=== PATIENT | female | born 1970 | race Caucasian/White ===

== ENCOUNTER 2019-01-08 08:30 | Day surgery (SDC) | payer OTHER ==
[2019-01-08] VITALS (7 sets, daily range): BP systolic 83–119; BP diastolic 50–57; PULSE 58–64; RESP 12–25; Ht 134.6 cm; Wt 54.4 kg
[~2019-01-08] VITALS: Ht 134.6 cm; Wt 54.4 kg
[~2019-01-08 08:30] MED LIST: CHOLESTEROL MED; THYROID MEDICATION
--- NOTE | 2019-01-08 10:25 | PREAC ---
Date/Time of Note Date/Time of Note DATE: 01/08/19 TIME: 10:23 Anesthesia Eval and Record Evaluation Time Pre-Procedure Interview DATE: 01/08/19 TIME: 10:23 Age 48 Sex female NPO: 8 hrs Preoperative diagnosis SCREENING, N/V Planned procedure EGD AND COLON Past Medical History Past Medical History: Includes Cardio: Dyslipidemia Endo: Hypothyroid Surgery & Anesthesia Issues No known issue Meds Anticoagulation: No Beta Myles within 24 hr: No Reason Beta Myles not given: Pt. not on B-Myles Reported Medications [Cholesterol Med] No Conflict Check 01/08/19 [Thyroid Medication] No Conflict Check 01/08/19 Meds reviewed: Yes Allergies Uncoded Allergies: BACTRIM (HIVES) (Allergy, Severe, HIVES, 01/08/19) Allergies Reviewed: Yes Labs/Studies Labs Reviewed: Reviewed by anesthesiologist test: Negative Pre-procedure Exam Airway: Adequate mouth opening, Adequate thyromental dist Mallampati: Mallampati II Teeth: Normal Lung: Normal Heart: Normal ASA Physical Status ASA physical status: 2 Emergency: None Planned Anesthetic General/MAC: MAC Planned Pain Management Parenteral pain med Pre-operative Attestations Prior to commencing anesthesia and surgery, the patient was re-evaluated, there was verification of: *The patient's identity *The results of appropriate recent lab work and preoperative vital signs *The above evaluation not changing prior to induction *Anesthetic plan, risk benefits, alternative and complications discussed with patient/family; questions answered; patient/family understands, accepts and wishes to proceed. ADAM FAIRCHILD Jan 08, 2019 10:25
[2019-01-08] MEDS ORDERED: LIDOCAINE 2% (SDV) 5 ML INJ ONE (10:26)
[2019-01-08] MEDS ORDERED: PROPOFOL 40 ML ONE (10:26)
--- NOTE | 2019-01-08 11:03 | PAC ---
Date/Time of Note Date/Time of Note DATE: 01/08/19 TIME: 11:02 Post-Anesthesia Notes Post-Anesthesia Note Last documented vital signs 100/67 78 98% TEMP 98.1 Activity: WNL Respiratory function: WNL Cardiovascular function: WNL Mental status: Baseline Pain reasonably controlled: Yes Hydration appropriate: Yes Nausea/Vomiting absent: Yes ADAM FAIRCHILD Jan 08, 2019 11:02
--- NOTE | 2019-01-11 07:08 | GILP ---
DATE OF PROCEDURE: PROCEDURE PERFORMED: EGD with biopsy and colonoscopy. INDICATION: A 48-year-old female undergoing this procedure for colon cancer screening and intermitte nt nausea and vomiting. The risk of the procedure, related and unrelated complications, anesthetic r isks, alternatives discussed. Informed consent was obtained. DESCRIPTION OF PROCEDURE: The patient was brought to the GI lab, sedated by Dr. Keller. After optimal sedation, scope was passed with much ease into esophagus which was grossly within normal limits. Z line was at 34 cm. Stomach mucosa revealed chronic gastritis. Four biopsies randomly obtained to ru le out H. pylori infection. Duodenum, first and second part was within normal limits. Retroversion in the stomach also was normal. We went all the way up to the third part of the duodenum. There was no evidence of obstruction, no stricture or ring. Scope was straightened out and removed with good patient tolerance. IMPRESSION: 1. Normal esophagus. 2. Z line at 34 cm. 3. Chronic gastritis. 4. Normal duodenum all the way up to the third part. 5. Normal ampulla. PLAN: Review histopathology. This finding cannot explain intermittent nausea and vomiting, will nee d further study. COLONOSCOPY REPORT: The patient was turned around, scope was passed with much ease into rectum, adva nced through sigmoid, descending, transverse colon all the way into cecum and finally into terminal i leum. Terminal ileum was normal up to 3 feet. Appendix was normal. Rest of the colon appeared norm al. While coming out, mucosa thoroughly inspected. No growth, no polyp. No diverticula seen. Retr oversion was not possible because of small rectum. Small external hemorrhoid identified. Sphincter tone was slightly loose. Clarity and cleanliness was good. IMPRESSION: 1. Normal finding all the way into cecum. 2. Normal terminal ileum. 3. Small external hemorrhoid. 4. Clarity and cleanliness was good. PLAN: Next colonoscopy after 10 years. Dictated By: NINO ALMONTE/MADI Conf#: [id number] DID#: [id number]
== END 2019-01-08 12:05 | disposition home or self-care (01) ==
LOC: GIL 08:30
PROVIDERS: ATTEND Internal Medicine Gastroenterology
DX: Z12.11 Encounter for screening for malignant neoplasm of colon (principal); K64.4 Residual hemorrhoidal skin tags; K29.30 Chronic superficial gastritis without bleeding
CPT/HCPCS: 43239; 45378; 88305; 88312; Z7610